=== PATIENT | female | born 1975 | race Caucasian/White ===

== ENCOUNTER 2020-06-23 | Emergency (ER) | payer BC, OTHER ==
[~2020-06-23] VITALS: Ht 154.9 cm; Wt 48.5 kg
[2020-06-23] MEDS ORDERED: LO LOESTRIN FE1 EACH PO (00:07)
[2020-06-23] MEDS ORDERED: DULERA 200 MCG/13 GM INH (00:07)
[2020-06-23] MEDS ORDERED: FAMOTIDINE40 MG PO (00:45)
[2020-06-23 00:57] LABS: ANION GAP 10 mmol/L (7-16); BUN 14 mg/dL (7-18); CALCIUM 8.8 mg/dL (8.5-10.1); CHLORIDE 103 mmol/L (98-107); CO2 25 mmol/L (21-32); CREATININE 0.9 mg/dL (0.6-1.0); GLUCOSE 101 mg/dL (74-106); POTASSIUM 3.5 mmol/L (3.5-5.1); SODIUM 138 mmol/L (136-145)
[2020-06-23 00:58] LABS: ABSOLUTE NEUTROPHILS 2.9 thou/uL (1.4-8.2); BASOPHILS 0.6 % (0.0-2.0); EOSINOPHILS 0.7 % (0.0-3.0); HEMATOCRIT 41.7 % (37.0-47.0); MCH 32.3 pg (26.0-34.0); MCHC 33.6 g/dL (28.0-37.0); MCV 96.1 fL (80.0-100.0); MONOCYTES 5.6 % (1.0-8.0); PLATELET COUNT 193 thou/uL (150-400); POLYS 53.1 % (36.0-66.0); RBC 4.34 mil/uL (4.20-5.00); WBC 5.4 thou/uL (4.0-11.0)
[2020-06-23 01:01] LABS: APTT 23.5 Seconds (24.5-32.8); PROTIME 9.9 Seconds (9.3-11.4)
[2020-06-23 01:07] LABS: ALBUMIN 3.6 g/dL (3.4-5.0); SGOT 20 U/L (15-37); SGPT 16 U/L (30-65); TOTAL BILIRUBIN 0.5 mg/dL (0.2-1.0); TOTAL PROTEIN 6.8 g/dL (6.4-8.2); TROPONIN-I <0.06 ng/mL (<0.06)
[2020-06-23] MEDS ORDERED: PREDNISONE10 MG PO (01:30)
[2020-06-23] MEDS ORDERED: TESSALON PERLE100 MG PO (01:30)
[2020-06-23 01:44] VITALS: BP 113/63
--- NOTE | 2020-06-23 07:49 | EKG ---
[facility] [place] [address] ELECTROCARDIOGRAM REPORT Name: AUGUSTA COYLE Room #: DEP [facility]#: [id number] Admission: 06/23/20 Attend Phys: Discharge: 06/23/20 Date of : 73 Report #: [id number] THIS REPORT FOR: cc: [facility] - Clinic physician unknown [facility] - Clinic physician unknown Ravindra Freeman MD [facility] ~ THIS REPORT FOR: //name// [facility] ED Test Date: 2020-06-23 Test Time: 00:23:52 Pat Name: AUGUSTA COYLE Department: Room: Gender: F [employer]: renee fung : 1975 Requested By: Tommy Santana Order Number: [id number] MD: Ravindra Freeman Measurements Intervals Quinter Rate: 73 P: 22 KS: 173 QRS: 7 QRSD: 100 T: 41 QT: 415 QTc: 458 Interpretive Statements Sinus rhythm Nonspecific ST segment abnormality No previous ECG available for comparison Electronically Signed On 06-23-2020 7:49:22 REGISTER REPAIRER by Ravindra Freeman [email or web address] <ELECTRONICALLY SIGNED> By: Ravindra Freeman MD, [facility] 06/23/20 0749 23 Ravindra Freeman MD, FACC /EPI
== END 2020-06-23 01:51 | disposition home or self-care (01) ==
LOC: ER
PROVIDERS: Emergency Medicine
DX: R05 Cough (principal); R07.89 Other chest pain; R06.00 Dyspnea, unspecified; T78.1XXA Other adverse food reactions, not elsewhere classified, initial encounter; K21.9 Gastro-esophageal reflux disease without esophagitis; Z79.899 Other long term (current) drug therapy; X58.XXXA Exposure to other specified factors, initial encounter